=== PATIENT | male | born 1955 | race Caucasian/White ===

== ENCOUNTER 2021-08-20 10:49 | Day surgery (SDC) | payer MEDICARE ==
[2021-08-20] MEDS ORDERED: LACTATED RINGERS 1,000 ML IV ONE ×2 (11:00→12:06)
[2021-08-20] MEDS ORDERED: PROPOFOL 500 MG/50 ML 500 MG/50 ML VIAL ONE (11:24)
--- NOTE | 2021-08-20 11:25 | ANESTHESIA ---
Pre-Anesthesia VS, & Labs - Diagnosis screening - Procedure colonoscopy Height: 5 ft 7 in Weight (kg): 73 kg Body Mass Index: 25.2 BMI Classification: Overweight - NPO >8 hours - Lab Results Current Lab Results: Laboratory Tests 08/20/21 11:14: POC Whole Bld Glucose 98 Lab results reviewed: Yes Home Medications and Allergies Home Medications: Ambulatory Orders Amlodipine Besylate [Norvasc] 10 mg DAILY 08/19/21 Atorvastatin Calcium [Lipitor] 80 mg DAILY 08/19/21 Losartan Potassium [Cozaar] 100 mg DAILY 08/19/21 metFORMIN [Glucophage] 500 mg DAILY 08/19/21 Amlodipine Besylate [Norvasc] 10 mg DAILY 08/19/21 Atorvastatin Calcium [Lipitor] 80 mg DAILY 08/19/21 Losartan Potassium [Cozaar] 100 mg DAILY 08/19/21 metFORMIN [Glucophage] 500 mg DAILY 08/19/21 Allergies/Adverse Reactions: Allergies Allergy/AdvReac Type Severity Reaction Status Date / Time No Known Drug Allergies Allergy Verified 08/19/21 12:17 Anes History & Medical History - Anesthetic History Anesthesia Complications: reports: No previous complications Family history of Anesthesia Complications: Denies Family history of Malignant Hyperthermia: Denies - Medical History Cardiovascular: reports: Hypertension, High cholesterol Pulmonary: reports: None Gastrointestinal: reports: Hemorrhoids Urinary: reports: None Musculoskeletal: reports: None Endocrine/Autoimmune: reports: Type 2 diabetes Skin: reports: None - Surgical History General: reports: Colonoscopy Orthopedic: reports: Other Exam General: Alert, Oriented x3, Cooperative, No acute distress Dental: Dentures full Upper Mouth Openin Fingerbreadth Neck Mobility: Normal Mallampati classification: II Plan Anesthesia Type: General, Total IV Consent for Procedure(s) Verified and Reviewed: Yes Code Status: Attempt Resuscitation ASA classification: 2-Mild systemic disease Is this case an emergency?: No
[2021-08-20] MEDS ORDERED: PROPOFOL 200 MG/20 ML VIAL IVP ONE (11:55)
[2021-08-20 12:17] VITALS: BP 117/78
--- NOTE | 2021-08-20 12:46 | ANESTHESIA POST OP EVALUATION ---
Anesthesia Post Eval - Post Anesthesia Eval Vitals: Last Vital Signs Temp 36.8 C 08/20/21 12:06 Pulse 71 08/20/21 12:15 Resp 20 08/20/21 12:15 BP 117/78 08/20/21 12:15 Pulse Ox 98 08/20/21 12:15 CV Function Including HR & BP: Stable Pain Control: Satisfactory Nausea & Vomiting: Negative Mental Status: Baseline Respiratory Status: Airway Patent Hydration Status: Satisfactory Anesthesia Complications: None
== END 2021-08-20 10:50 | disposition home or self-care (01) ==
LOC: SDS 10:49
PROVIDERS: ATTEND Surgery
PROC: 0DBM8ZZ Excision of Descending Colon, Via Natural or Artificial Opening Endoscopic (ICD-10-PCS; 2021-08-20)
PROC: 0DBP8ZZ Excision of Rectum, Via Natural or Artificial Opening Endoscopic (ICD-10-PCS; 2021-08-20)
PROC: 0DBP8ZZ Excision of Rectum, Via Natural or Artificial Opening Endoscopic (ICD-10-PCS; principal; 2021-08-20 12:00)
DX: Z12.11 Encounter for screening for malignant neoplasm of colon (principal); D12.8 Benign neoplasm of rectum; D12.4 Benign neoplasm of descending colon; K57.30 Diverticulosis of large intestine without perforation or abscess without bleeding; E11.9 Type 2 diabetes mellitus without complications; F17.210 Nicotine dependence, cigarettes, uncomplicated
CPT/HCPCS: 45380; 45385; J7120

== ENCOUNTER 2021-08-23 07:33 | Outpatient (CLI) | payer MEDICARE ==
--- NOTE | 2021-08-23 10:38 | CT Report ---
PROCEDURE: Low Dose Lung Cancer Screen INDICATIONS: CARDIOVASCULAR SCREENING, FORMER SMOKER TECHNIQUE: Noncontrast low-dose images were acquired from the pulmonary apices to the posterior costophrenic ang les. Multiplanar MIP reformats were then acquired. For radiation dose reduction, the following was used: automated exposure control, adjustment of mA and/or kV according to patient size. COMPARISON: None. FINDINGS: Image quality: Excellent. Lungs and pleura: No suspicious pulmonary nodules. No pleural effusions. No focal consolidation. Mediastinum: Heart size is normal. No pericardial effusion. Moderate to severe coronary artery calc ifications. No mediastinal adenopathy by size criteria. Thoracic aorta and central pulmonary arteri es are normal in size. Esophagus is normal in caliber. No hiatal hernia. Bones and chest wall: No suspicious bony lesions. No vertebral body compression fractures. No axil jeff or supraclavicular adenopathy by size criteria. The thyroid is normal in size and there are no incidental findings. Abdomen: Visualized upper abdomen solid organs and bowel loops appear normal in the absence of contr ast. IMPRESSION: 1. LungRads category 1: Negative. No nodules and/or definitely benign nodules. 2. Annual low-dose noncontrast CT of the chest is recommended for lung cancer screening. 3. Clinically significant or potentially clinically significant findings (nonlung cancer): Moderate t o severe coronary artery calcifications. CLINICAL RECOMMENDATION STATEMENTS: In patients <35 years with an ITN detected on CT, MRI, or extrathyroidal ultrasound, the Committee re commends further evaluation with dedicated thyroid ultrasound if the nodule is "e1 cm and has no susp icious imaging features, and if the patient has normal life expectancy. In patients "e35 years with an ITN detected on CT, MRI, or extrathyroidal ultrasound, the Committee r ecommends further evaluation with dedicated thyroid ultrasound if the nodule is "e1.5 cm and has no s uspicious imaging features, and if the patient has normal life expectancy. (ACR, 2014) Reviewed by: Nehemias Izaguirre MD on 08/23/2021 10:37 AM PDT Approved by: Nehemias Izaguirre MD on 08/23/2021 10:37 AM PDT Station ID: [id number]
--- NOTE | 2021-08-23 16:13 | Ultrasound Report ---
PROCEDURE: Aorta Screening INDICATIONS: CARDIOVASCULAR SCREENING, FORMER SMOKER TECHNIQUE: Real time scanning was performed of the aorta and iliac arteries, with image documentatio n. COMPARISON: None FINDINGS: Aorta: Proximal aortic diameter measures 2.2 x 2.1 cm. Mid-aorta measures 2.2 x 2.0 cm. Distal aor tic diameter is 3.3 x 3.0 cm. Iliac arteries: Right common iliac artery measures 1.3 x 1.3 cm. Left common iliac artery measures 1.0 x 1.2 cm. IMPRESSION: Distal aortic ectasia as above. Reviewed by: Tonia Paez MD on 08/23/2021 4:12 PM PDT Approved by: Tonia Paez MD on 08/23/2021 4:12 PM PDT Station ID: [id number]
== END 2021-08-23 07:34 | disposition home or self-care (01) ==
LOC: DI 07:33
PROVIDERS: ATTEND Student in an Organized Health Care Education/Training Program
DX: Z12.2 Encounter for screening for malignant neoplasm of respiratory organs (principal); Z13.6 Encounter for screening for cardiovascular disorders; Z87.891 Personal history of nicotine dependence; I77.811 Abdominal aortic ectasia